=== PATIENT | female | born 1950 | race Caucasian/White ===

== ENCOUNTER 2023-10-04 10:24 | Outpatient (CLI) | payer MEDICARE | END 2023-10-04 10:25 | disposition home or self-care (01) | LOC: CSHMRI 10:24 | PROVIDERS: ATTEND Neurological Surgery | DX: M47.26 Other spondylosis with radiculopathy, lumbar region (principal); Z98.890 Other specified postprocedural states; M48.061 Spinal stenosis, lumbar region without neurogenic claudication; M51.16 Intervertebral disc disorders with radiculopathy, lumbar region; N85.9 Noninflammatory disorder of uterus, unspecified | CPT/HCPCS: 72148 ==